=== PATIENT | female | born 1995 | race Caucasian/White ===

== ENCOUNTER 2017-02-17 17:56 | Emergency (ER) | payer OTHER ==
[2017-02-17 18:05] VITALS: BP 134/77; BMI 34.9
--- NOTE | 2017-02-17 18:47 | DR.GENAD ---
HPI - PCP Primary Care Physician: NFD - Complaint/Symptoms Chief Complaint:: PT C/O WELPS AND A RASH ALL OVER BODY AND IS IN SEVERE PAIN. NOTED RASH TO BE ON PT'S ABD, LEGS, ARMS. - Nurses notes reviewed Nurses Notes Review: Yes - Source History Provided: Patient - Mode of Arrival Mode of Arrival: Ambulatory - Timing Onset of Chief Complaint: 02/03/17 Came on: Gradually - Duration Duration: Constant How lon Duration: Weeks - Location Location: generalized - Severity Severity: Moderate - Modifying Factors Worsens:: unknown - Associated Signs and Symptoms Associated Signs and Symptoms: itchy - Other History Other History: rash comes and goes over 2 weeks PMH - PMH Past Medical History: No Past Medical History: Anxiety Past Medical History Comment: ADHD, BIPOLAR, AND MOOD DISORDER Past Surgical History: Yes Past Surgical History Comment: BROKEN BACK - Family History History of Family Medical Conditions: No - Social History Does patient currently use any type of tobacco product: Yes Have you used tobacco products in the last 12 months: Yes Type of Tobacco Use: Cigarettes Does any household member use tobacco: Yes Alcohol Use: Occasionally Do you use any recreational Drugs:: No Lives With: Significant Other, Friend Lives Where: Home - infectious screening In the last 2 months have you had wt loss of >10#?: NO Have you had fever, night sweats or hemotysis?: No Have you traveled outside the country in the last 6 months?: No Isolation: Standard ROS - Review of Systems Constitutional: No Symptoms Reported Eyes: No Symptoms Reported ENTM: No Symptoms Reported Respiratoy: No Symptoms Reported Cardiovascular: No Symptoms Reported Gastrointestinal/Abdominal: No Symptoms Reported Genitourinary: No Symptoms Reported Neurological: No Symptoms Reported Musculoskeletal: No Symptoms Reported Integumentary: Rash, Itching Hematologic/Lymphatic: No Symptoms Reported Endocrine: No Symptoms Reported Psychiatric: No Symptoms Reported PE - Vital Signs Vitals: Temperature 97.4 F Pulse Rate 95 Respiratory Rate 18 Blood Pressure 134/77 O2 Sat by Pulse Oximetry 96 - General Limitations: No Limitations General Appearance: Alert, In No Apparent Distress - Head Head Exam: Normal Inspection - Eyes Eye exam: Normal Appearance, EOMI. negative: Scleral Icterus, Conjunctival Injection - ENT ENT Exam: Normal Exam, Normal Oropharynx - Neck Neck Exam: Normal Inspection, Full ROM, Trachea Midline - Chest Chest Inspection: Normal Inspection - Respiratory Respiratory Exam: negative: Accessory Muscle Use, Respiratory Distress Respiratory Exam: Bilateral Clear to Auscultation - Cardiovascular Cardiovascular Exam: Regular Rate - Extremities Extremities Exam: Normal Inspection, Full ROM - Back Back Exam: Normal Inspection - Neurologic Neurological Exam: Alert, Oriented X3, CN II-XII Intact - Psychiatric Psychiatric Exam: Normal Mood - Skin Skin Exam: Intact, Rash (rash and whelps present). negative: Normal Color - Diagnosis Discharge Problem: Atopic dermatitis - Discharge Plan Condition: Stable Prescriptions: Diphenhydramine HCl [BENADRYL 50 MG CAP *] 50 mg PO Q8H #30 cap Prednisone [Prednisone DS Dosepak 10 mg (12 day)] 1 stacie PO ONCE #1 stacie - Follow ups/Referrals Follow ups/Referrals: NFD,None [Primary Care Provider] - 3 days - Instructions
[2017-02-17] MEDS ORDERED: DECADRON INJ IM ONE (19:04)
[2017-02-17] MEDS ORDERED: BENADRYL CAP 50 MG PO ONE (19:05)
[2017-02-17] MEDS ORDERED: DECADRON INJ ONE (19:07)
[2017-02-17] MEDS ORDERED: BENADRYL CAP/TAB 25 MG PO ONE ×2 (19:08→19:11)
== END 2017-02-17 19:20 | disposition home or self-care (01) ==
LOC: ER 18:29
DX: L20.89 Other atopic dermatitis (principal)
CPT/HCPCS: 96372; 99282; J1100